=== PATIENT | female | born 1930 | race Caucasian/White ===

== ENCOUNTER 2016-11-20 15:01 | Inpatient (IN) | payer MEDICARE, OTHER ==
[~2016-11-20] VITALS: Ht 162.6 cm; Wt 87.6 kg
[~2016-11-20 15:01] MED LIST: CLEO300C2 PO; ESTR0.5T9 PO; FURO20TA PO; LEVO.05 PO; NAPR-576 PO; OXYC1SOL5 PO; POTA-243 PO; SULF-154 PO; WALKER ROLLING
[2016-11-20 15:16] VITALS: BP 154/77; PULSE 87; RESP 20; TEMP 98.1; O2SAT 99
[2016-11-20] MEDS ORDERED: MORPHINE SULFATE 4 MG/ML INJ IV PUSH ONE (16:00)
[2016-11-20] MEDS ORDERED: SODIUM CHLORIDE 0.9% FLUSH 5 ML FLUSH IVF PRN (16:00)
--- NOTE | 2016-11-20 16:12 | PD ---
HPI Chief Complaint: Fall Time Seen by Provider: 16:12 Travel History International Travel<30 days: No Contact w/Intl Traveler<30days: No Traveled to known affect area: No History of Present Illness HPI 86-year-old female brought in by EMS status post fall. Patient states she was helping a friend change Walker's, when he fell backwards causing her to fall backwards onto her left side. Patient now has complaints of left hip pain and left shoulder pain. Patient denies hitting her head or loss of consciousness. She has no neck pain. Patient was seen in the ambulance all by Dr. Wong put orders in. Patient states no significant chronic medical problems , and she takes no medications other than oxycodone for chronic back pain. Patient also takes thyroid medication but is not diabetic and has no history of cardiac issues in the past. Patient is allergic to penicillin and tetracycline. Patient does not have an IV line. PFSH Past Medical History Arthritis: Yes Cancer: Yes (SKIN CANCER ON FACE) Cardiovascular Problems: No Diabetes: No Diminished Hearing: No Endocrine: No Gastrointestinal Disorders: Yes (HEMMEROIDS, INCONTINENCE) Genitourinary: Yes (INCONTINENT ) Headaches: Yes Hepatitis: No Hiatal Hernia: No Immune Disorder: No Musculoskeletal: Yes Neurologic: Yes (MIGRAINES) Psychiatric: No Reproductive: No Respiratory: No Migraines: Yes Thyroid Disease: Yes (HYPOTHYROIDISM) Tetanus Vaccination: Unknown Influenza Vaccination: No ?: Not Menopausal: Yes Past Surgical History Abdominal Surgery: No AICD: No Appendectomy: Yes Cardiac Surgery: No Ear Surgery: No Endocrine Surgery: No Eye Surgery: Yes (CATARACT SURGERY 2004) Genitourinary Surgery: No Gynecologic Surgery: No Hysterectomy: Yes Joint Replacement: No Neurologic Surgery: Yes (LUMBAR SURGERY; LAMINECTOMY 2000) Oral Surgery: No Pacemaker: No Thoracic Surgery: No Tonsillectomy: Yes Other Surgery: Yes (FACE LIFT) Social History Alcohol Use: Yes (WINE AT NIGHT 1.5 GLASSES ) Tobacco Use: No Substance Use: No Allergies-Medications (Allergen,Severity, Reaction): Coded Allergies: Penicillin (Verified Allergy, Severe, RASH, 11/20/16) Tetracyclines (Verified Allergy, Severe, 11/20/16) Reported Meds & Prescriptions Reported Meds & Active Scripts Active Naproxen 500 Mg Tab 500 Mg PO BID Septra Ds (Trimethoprim/Sulfamethoxazole) Tab 1 Tab PO BID Cleocin (Clindamycin HCl) 300 Mg Cap 300 Mg PO QID Oxycodone/Acetaminophen 10 mg/325 mg 1 Tab Tab 1 Tab PO Q4 Walker Rolling (Device) Device 1 Ea Reported Furosemide 20 Mg Tab 20 Mg PO DAILY Klor-Con 10 Meq (Potassium Chloride) 10 Meq Tabcr 10 Meq PO DAILY Synthroid (Levothyroxine Sodium) 50 Mcg Tab 100 Mcg PO DAILY Estrace (Estradiol) 0.5 Mg Tab 2 Mg PO DAILY UNKNOWN DOSE Review of Systems Except as stated in HPI: all other systems reviewed are Neg General / Constitutional: No: Fever Eyes: No: Visual changes HENT: No: Headaches Cardiovascular: No: Chest Pain or Discomfort Respiratory: No: Shortness of Breath Gastrointestinal: No: Abdominal Pain Genitourinary: No: Dysuria Musculoskeletal: No: Pain Skin: No Rash Neurologic: No: Weakness Psychiatric: No: Depression Endocrine: No: Polydipsia Hematologic/Lymphatic: No: Easy Bruising Physical Exam Narrative GENERAL: Patient is alert and oriented and in mild to moderate distress secondary to pain. SKIN: Warm and dry. No acute open wounds. We'll color. Normal turgor. HEAD: Atraumatic. Normocephalic. Nontender. EYES: Pupils equal and round. No scleral icterus. No injection or drainage. ENT: No nasal bleeding or discharge. Mucous membranes pink and moist. No dental injuries. Airway is patent. NECK: Trachea midline. No JVD. Supple and nontender without step-off or point tenderness. CARDIOVASCULAR: Regular rate and rhythm. No murmurs appreciated. RESPIRATORY: No accessory muscle use. Clear to auscultation. Breath sounds equal bilaterally. GASTROINTESTINAL: Abdomen soft, non-tender, nondistended. Hepatic and splenic margins not palpable. MUSCULOSKELETAL: Extremities without clubbing, cyanosis, or edema. Patient has mild shortening and external rotation of the left leg. Patient complains of most pain with palpation in the anterior groin which she describes as deep into the pelvis. Pelvis itself seems stable on exam. Left shoulder is able to remove with discomfort both actively and passively. There is no obvious point tenderness or deformity. Range of motion is limited secondary to pain. Patient states she has a history of pain in the left shoulder but seems to be worse and she fell. NEUROLOGICAL: Awake and alert. No obvious cranial nerve deficits. Motor grossly within normal limits. Five out of 5 muscle strength in the arms and legs. Normal speech. PSYCHIATRIC: Appropriate mood and affect; insight and judgment normal. Data Data Last Documented VS Vital Signs Date Time Temp Pulse Resp B/P Pulse Ox O2 Delivery O2 Flow Rate FiO2 11/20/16 16:46 95 20 138/63 100 Room Air 11/20/16 15:16 98.1 Orders Electrocardiogram (11/20/16 15:58) Complete Blood Count With Diff (11/20/16 15:58) Comprehensive Metabolic Panel (11/20/16 15:58) Prothrombin Time / Inr (Pt) (11/20/16 15:58) Act Partial Throm Time (Ptt) (11/20/16 15:58) Urinalysis - C+S If Indicated (11/20/16 15:58) Type And Screen (11/20/16 15:58) Chest, Single Ap (11/20/16 15:58) Hip, Uni(Ap&Lat) W Ap Pelvis (11/20/16 15:58) Iv Access Insert/Monitor (11/20/16 15:58) Oximetry (11/20/16 15:58) Ecg Monitoring (11/20/16 15:58) Morphine Inj (Morphine Inj) (11/20/16 16:00) Sodium Chloride 0.9% Flush (Ns Flush) (11/20/16 16:00) Diet Npo (11/21/16 Dinner) Shoulder, Complete (>2vws) (11/20/16 16:24) Urinary Catheter Insert/Apply (11/20/16 16:24) Hydromorphone Pf Inj (Dilaudid Pf Inj) (11/20/16 17:15) Hydromorphone Pf Inj (Dilaudid Pf Inj) (11/20/16 17:15) Ct Hip W/O Contrast (11/20/16 ) Admit Order (Ed Use Only) (11/20/16 19:19) Consult Orthopedic (11/20/16 ) Labs Laboratory Tests Test 11/20/16 16:40 White Blood Count 10.7 TH/MM3 Red Blood Count 3.58 MIL/MM3 Hemoglobin 10.7 GM/DL Hematocrit 33.5 % Mean Corpuscular Volume 93.6 FL Mean Corpuscular Hemoglobin 30.0 PG Mean Corpuscular Hemoglobin 32.1 % Concent Red Cell Distribution Width 15.0 % Platelet Count 237 TH/MM3 Mean Platelet Volume 9.0 FL Neutrophils (%) (Auto) 74.4 % Lymphocytes (%) (Auto) 17.3 % Monocytes (%) (Auto) 5.9 % Eosinophils (%) (Auto) 1.6 % Basophils (%) (Auto) 0.8 % Neutrophils # (Auto) 7.9 TH/MM3 Lymphocytes # (Auto) 1.9 TH/MM3 Monocytes # (Auto) 0.6 TH/MM3 Eosinophils # (Auto) 0.2 TH/MM3 Basophils # (Auto) 0.1 TH/MM3 CBC Comment DIFF FINAL Differential Comment Prothrombin Time 11.0 SEC Prothromb Time International 1.0 RATIO Ratio Activated Partial 27.1 SEC Thromboplast Time Sodium Level 138 MEQ/L Potassium Level 4.0 MEQ/L Chloride Level 103 MEQ/L Carbon Dioxide Level 27.9 MEQ/L Anion Gap 7 MEQ/L Blood Urea Nitrogen 17 MG/DL Creatinine 1.06 MG/DL Estimat Glomerular Filtration 49 ML/MIN Rate Random Glucose 92 MG/DL Calcium Level 8.9 MG/DL Total Bilirubin 0.3 MG/DL Aspartate Amino Transf 16 U/L (AST/SGOT) Alanine Aminotransferase 14 U/L (ALT/SGPT) Alkaline Phosphatase 98 U/L Total Protein 7.8 GM/DL Albumin 3.1 GM/DL Blood Type O POSITIVE Antibody Screen NEGATIVE MDM Medical Decision Making Medical Screen Exam Complete: Yes Emergency Medical Condition: Yes Differential Diagnosis Fall. Left hip fracture. Left hip pain. Left shoulder pain. Left shoulder fracture. Narrative Course Patient is medically stable at time of exam. Labs ordered including CBC, CMP, PT PTT and INR, urinalysis. Chest x-ray is ordered as well as x-rays of the left femur and hip and left shoulder. IV access is obtained patient is ordered morphine 4 mg IV. Ackerman catheter is ordered. Patient is kept nothing by mouth. Patient is given Dilaudid 1 mg IV prior to her x-rays. Upon return from her x-rays patient continues to have pain, an additional 1 mg of Dilaudid is given IV. X-ray left shoulder is unremarkable for acute process. X-rays of the left hip are felt to be positive for a femoral neck fracture myself and Dr. Chavez, but Dr. Jacobson the radiologist is unsure. CT of the right hip is ordered. Call was placed to Dr. Riley, and I spoke with his physician financial legal assistant, who is going to review the x-rays and call me back. 1910 hrs. call returned by Dr. Riley physician financial legal assistant who reviewed the films with Dr. Riley, who agrees there is a femoral neck fracture. Patient will be admitted by the hospitalist and is planning to have hip replacement with Dr. Larry tomorrow morning. 1913 hrs. call placed to the hospitalist for admission. 1917 hrs. discussed patient with Dr. Hernandez who agrees to admit the patient. Patient is to be nothing by mouth after midnight. Diagnosis Primary Impression: Closed left hip fracture Qualified Code: S72.002A - Closed left hip fracture, initial encounter Admitting Information Admitting Physician Requests: Admit Condition: Stable Lucho Casillas Nov 20, 2016 16:12
[2016-11-20 16:46] VITALS: BP 138/63; PULSE 95; RESP 20; O2SAT 100
[2016-11-20] MEDS ORDERED: HYDROmorphone HCL PF 1 MG/ML VIAL IV PUSH ONE ×3 (17:15→20:00)
[2016-11-20 17:52] LABS: AUTOMATED NEUTROPHIL # 7.9 TH/MM3 (1.8-7.7); BASOPHIL # 0.1 TH/MM3 (0-0.2); BASOPHIL % 0.8 % (0.0-2.0); EOSINOPHIL # 0.2 TH/MM3 (0-0.4); EOSINOPHIL % 1.6 % (0.0-4.0); HEMATOCRIT 33.5 % (35.0-46.0); HEMO FLAGS DIFF FINAL; LYMPH % 17.3 % (9.0-44.0); LYMPHOCYTE # 1.9 TH/MM3 (1.0-4.8); MEAN CELL VOLUME 93.6 FL (80.0-100.0); MEAN CORPUSCULAR HGB CONC 32.1 % (32.0-36.0); MONO % 5.9 % (0.0-8.0); NEUT % 74.4 % (16.0-70.0); PLATELET COUNT 237 TH/MM3 (150-450); RED BLOOD COUNT 3.58 MIL/MM3 (4.00-5.30); WHITE BLOOD COUNT 10.7 TH/MM3 (4.0-11.0)
[2016-11-20 18:02] LABS: APTT (PATIENT) 27.1 SEC (24.3-30.1)
[2016-11-20 18:25] LABS: ANION GAP 7 MEQ/L (5-15); AST (GOT) 16 U/L (15-37); BICARBONATE 27.9 MEQ/L (21.0-32.0); BLOOD UREA NITROGEN 17 MG/DL (7-18); CHLORIDE 103 MEQ/L (98-107); GLOMERULAR FILTRATION RATE 49 ML/MIN (>89); SODIUM (NA) 138 MEQ/L (136-145)
[2016-11-20 18:28] LABS: ALKALINE PHOSPHATASE 98 U/L (45-117); ALT (GPT) 14 U/L (10-53); TOTAL BILIRUBIN ADULT 0.3 MG/DL (0.2-1.0)
--- NOTE | 2016-11-20 18:28 | RADRPT ---
EXAM DATE/TIME: 11/20/2016 17:15 [facility] COMPARISON: CHEST SINGLE AP, November 19, 2014, 16:02. INDICATIONS : Chest pain. Post fall. MEDICAL HISTORY : None. SURGICAL HISTORY : None. ENCOUNTER: Initial ACUITY: 1 day PAIN SCORE: 1/10 LOCATION: Bilateral chest FINDINGS: There is no evidence for rib fracture. There is no pneumothorax. The heart and pulmonary vascularity are normal. CONCLUSION: Underaerated without rib fracture. Raffi Jacobson MD FACR on November 20, 2016 at 18:12 Board Certified Radiologist. This report was verified electronically.
--- NOTE | 2016-11-20 18:30 | RADRPT ---
EXAM DATE/TIME: 11/20/2016 17:15 [facility] COMPARISON: No previous studies available for comparison. INDICATIONS : Left shoulder pain post fall. MEDICAL HISTORY : None. SURGICAL HISTORY : None. ENCOUNTER: Initial ACUITY: 1 day PAIN SCORE: 8/10 LOCATION: Left shoulder. FINDINGS: There are degenerative changes about the left shoulder. A fracture is not appreciated. Alignment is anatomic. There is minimal calcification in the biceps tendon. CONCLUSION: Negative for fracture. Raffi Jacobson MD FACR on November 20, 2016 at 18:13 Board Certified Radiologist. This report was verified electronically.
--- NOTE | 2016-11-20 18:31 | RADRPT ---
EXAM DATE/TIME: 11/20/2016 17:15 [facility] COMPARISON: No previous studies available for comparison. INDICATIONS : Left hip pain post fall. MEDICAL HISTORY : None. SURGICAL HISTORY : None. ENCOUNTER: Initial ACUITY: 1 day PAIN SCORE: 9/10 LOCATION: Left hip. FINDINGS: Examination is severely limited by the patient's large body habitus. I do not see an obvious fractur e. If one is suspected CT scan would be of benefit. CONCLUSION: Severely limited exam by patient's body habitus. Please see above discussion. Raffi Jacobson MD FACR on November 20, 2016 at 18:22 Board Certified Radiologist. This report was verified electronically.
--- NOTE | 2016-11-20 18:43 | PD ---
Data Data Last Documented VS Vital Signs Date Time Temp Pulse Resp B/P Pulse Ox O2 Delivery O2 Flow Rate FiO2 11/20/16 16:46 95 20 138/63 100 Room Air 11/20/16 15:16 98.1 Orders Electrocardiogram (11/20/16 15:58) Complete Blood Count With Diff (11/20/16 15:58) Comprehensive Metabolic Panel (11/20/16 15:58) Prothrombin Time / Inr (Pt) (11/20/16 15:58) Act Partial Throm Time (Ptt) (11/20/16 15:58) Urinalysis - C+S If Indicated (11/20/16 15:58) Type And Screen (11/20/16 15:58) Chest, Single Ap (11/20/16 15:58) Hip, Uni(Ap&Lat) W Ap Pelvis (11/20/16 15:58) Iv Access Insert/Monitor (11/20/16 15:58) Oximetry (11/20/16 15:58) Ecg Monitoring (11/20/16 15:58) Morphine Inj (Morphine Inj) (11/20/16 16:00) Sodium Chloride 0.9% Flush (Ns Flush) (11/20/16 16:00) Diet Npo (11/21/16 Dinner) Shoulder, Complete (>2vws) (11/20/16 16:24) Urinary Catheter Insert/Apply (11/20/16 16:24) Hydromorphone Pf Inj (Dilaudid Pf Inj) (11/20/16 17:15) Hydromorphone Pf Inj (Dilaudid Pf Inj) (11/20/16 17:15) Ct Hip W/O Contrast (11/20/16 ) Labs Laboratory Tests Test 11/20/16 16:40 White Blood Count 10.7 TH/MM3 Red Blood Count 3.58 MIL/MM3 Hemoglobin 10.7 GM/DL Hematocrit 33.5 % Mean Corpuscular Volume 93.6 FL Mean Corpuscular Hemoglobin 30.0 PG Mean Corpuscular Hemoglobin 32.1 % Concent Red Cell Distribution Width 15.0 % Platelet Count 237 TH/MM3 Mean Platelet Volume 9.0 FL Neutrophils (%) (Auto) 74.4 % Lymphocytes (%) (Auto) 17.3 % Monocytes (%) (Auto) 5.9 % Eosinophils (%) (Auto) 1.6 % Basophils (%) (Auto) 0.8 % Neutrophils # (Auto) 7.9 TH/MM3 Lymphocytes # (Auto) 1.9 TH/MM3 Monocytes # (Auto) 0.6 TH/MM3 Eosinophils # (Auto) 0.2 TH/MM3 Basophils # (Auto) 0.1 TH/MM3 CBC Comment DIFF FINAL Differential Comment Prothrombin Time 11.0 SEC Prothromb Time International 1.0 RATIO Ratio Activated Partial 27.1 SEC Thromboplast Time Sodium Level 138 MEQ/L Potassium Level 4.0 MEQ/L Chloride Level 103 MEQ/L Carbon Dioxide Level 27.9 MEQ/L Anion Gap 7 MEQ/L Blood Urea Nitrogen 17 MG/DL Creatinine 1.06 MG/DL Estimat Glomerular Filtration 49 ML/MIN Rate Random Glucose 92 MG/DL Calcium Level 8.9 MG/DL Total Bilirubin 0.3 MG/DL Aspartate Amino Transf 16 U/L (AST/SGOT) Alanine Aminotransferase 14 U/L (ALT/SGPT) Alkaline Phosphatase 98 U/L Total Protein 7.8 GM/DL Albumin 3.1 GM/DL Blood Type O POSITIVE Antibody Screen NEGATIVE MDM Supervised Visit with WALLY: Yes Narrative Course The history, exam, and medical decision-making in the associated midlevel provider note were completed with my assistance. I reviewed and agree with the findings presented. I attest that I had a [id number] encounter with the patient on the same day, and personally performed and documented my assessment and findings in the medical record. *My assessment and Findings: This is an 86-year-old female who presents to the emergency department having had a fall. Patient has evidence clinically and on my read on x-ray of a left femoral neck fracture. Radiology would like to obtain a CT to evaluate the hip more thoroughly. Patient will be admitted for orthopedic evaluation. Condition: Stable Salome Chavez MD Nov 20, 2016 18:43
[2016-11-20 19:35] LABS: BACTERIA, URINE MOD /hpf; BLOOD, URINE NEG (NEG); COMMENT (UR) CATH-CULTURE IND; CULTURE IF INDICATED CATH CULTURE IND; GLUCOSE,URINE NEG (NEG); KETONE, URINE NEG (NEG); MUCUS URINE FEW /lpf (OCC); NITRITE,URINE POS (NEG); PH, URINE 5.5 (5.0-8.5); SQUAMOUS EPITHELIAL CELL URINE <1 /hpf (0-5); URINE COLOR YELLOW (YELLW/STRAW)
[2016-11-20] MEDS ORDERED: NALOXONE HCL 0.4 MG/ML AMP IV PRN (20:15)
[2016-11-20] MEDS ORDERED: ONDANSETRON HCL 4 MG/2 ML VIAL IVP PRN (20:15)
[2016-11-20] MEDS ORDERED: SODIUM CHLORIDE 0.9% FLUSH 5 ML FLUSH FLUSH PRN (20:15)
[2016-11-20] MEDS ORDERED: HYDROmorphone HCL PF 1 MG/ML VIAL IV PUSH PRN (20:15)
[2016-11-20 20:38] VITALS: BP 136/62; PULSE 95; RESP 20; O2SAT 97
[2016-11-20] MEDS: SODIUM CHLORIDE 0.9% FLUSH 5 ML FLUSH FLUSH SCH (21:11)
[2016-11-20 22:19] VITALS: BP 132/58; PULSE 88; RESP 20
--- NOTE | 2016-11-20 23:37 | HHI.HP ---
[facility] Melvin Izquierdo DO Admission Diagnosis Left Hip Fracture Diagnoses: Chief Complaint: Left hip pain Travel History International Travel<30 Days: No Contact w/Intl Traveler <30 Da: No Traveled to Known Affected Are: No History of Present Illness History taken from patient and ED physician 86-year-old female with a history of chronic back pain, hypothyroidism, skin cancer, rheumatoid arthritis and lymphedema presented by evac after suffering a fall at home. Patient states that her walker has a seat on it and her fianc was getting weak and thought he was going to follow, so she turned her walker around so he could sit on his feet, and the force of him sitting on the seat pushed her backwards and she fell to the ground and landed on her left side. She denies any loss of consciousness. She states her left hip and left shoulder is a severe throbbing pain, with no associated symptoms. She denies any chest pain, short of breath, fever or chills. Review of Systems Constitutional: DENIES: Fever, Chills Respiratory: DENIES: Cough, Sputum production, Shortness of breath Cardiovascular: COMPLAINS OF: Lower Extremity Edema (chronic), DENIES: Chest pain, Dyspnea on Exertion Gastrointestinal: DENIES: Constipation, Diarrhea, Nausea, Vomiting Genitourinary: DENIES: Dysuria Musculoskeletal: COMPLAINS OF: Back pain (chronic), DENIES: Neck pain Integumentary: DENIES: Rash Immunologic/allergic: DENIES: Urticaria Neurologic: DENIES: Headache Past Family Social History Past Medical History Chronic back pain Hypothyroidism Skin cancer Short arthritis Lymphedema Past Surgical History Laminectomy in 1999 and 2003 Cataracts 2005 Facelift Tonsillectomy hysterectomy Appendectomy Reported Medications Reported Meds & Active Scripts Active Naproxen 500 Mg Tab 500 Mg PO BID Septra Ds (Trimethoprim/Sulfamethoxazole) Tab 1 Tab PO BID Cleocin (Clindamycin HCl) 300 Mg Cap 300 Mg PO QID Oxycodone/Acetaminophen 10 mg/325 mg 1 Tab Tab 1 Tab PO Q4 Walker Rolling (Device) Device 1 Ea Reported Furosemide 20 Mg Tab 20 Mg PO DAILY Jordan 10 Meq (Potassium Chloride) 10 Meq Tabcr 10 Meq PO DAILY Synthroid (Levothyroxine Sodium) 50 Mcg Tab 100 Mcg PO DAILY Estrace (Estradiol) 0.5 Mg Tab 2 Mg PO DAILY UNKNOWN DOSE Allergies: Coded Allergies: Penicillin (Verified Allergy, Severe, RASH, 11/20/16) Tetracyclines (Verified Allergy, Severe, 11/20/16) Active Ordered Medications Current Medications Medications (Trade) Dose Ordered Sig/Yari Route Start Time Stop Time Status Last Admin (NS Flush) 2 ml UNSCH PRN FLUSH 11/20/16 20:15 (NS Flush) 2 ml BID FLUSH 11/20/16 21:00 11/20/16 21:11 (Zofran Inj) 4 mg Q6H PRN IVP 11/20/16 20:15 (Narcan Inj) 0.4 mg UNSCH PRN IV 11/20/16 20:15 (Dilaudid Pf Inj) 1 mg Q2HR PRN IV PUSH 11/21/16 00:30 Family History Mom: Heart disease Social History Tobacco use: Denies Alcohol use: A glass of Wine night Illicit drug use: Denies Physical Exam Vital Signs Vital Signs Date Time Temp Pulse Resp B/P Pulse Ox O2 Delivery O2 Flow Rate FiO2 11/20/16 22:19 88 20 132/58 Nasal Cannula 11/20/16 20:38 95 20 136/62 97 Nasal Cannula 11/20/16 16:46 95 20 138/63 100 Room Air 11/20/16 15:18 Room Air 11/20/16 15:16 98.1 87 20 154/77 99 Physical Exam GENERAL: This is a well-nourished, well-developed patient, in a moderate amount of pain SKIN: Bilateral lower extremities lymphedema, currently wrapped in an ulnar boot. HEAD: Atraumatic. Normocephalic. EYES: Pupils equal round and reactive. ENT: Nose without bleeding, purulent drainage or septal hematoma. Airway patent. NECK: Trachea midline. No JVD. CARDIOVASCULAR: Regular rate and rhythm without murmurs, gallops, or rubs. RESPIRATORY: Clear to auscultation. Breath sounds equal bilaterally. No wheezes , rales, or rhonchi. GASTROINTESTINAL: Abdomen soft, non-tender, nondistended. MUSCULOSKELETAL: Bilateral lower extremity lymph edema. Left hip tenderness No calf tenderness. NEUROLOGICAL: Awake and alert. Motor and sensory grossly within normal limits. Normal speech. Laboratory Laboratory Tests Test 11/20/16 16:40 White Blood Count 10.7 Red Blood Count 3.58 Hemoglobin 10.7 Hematocrit 33.5 Mean Corpuscular Volume 93.6 Mean Corpuscular Hemoglobin 30.0 Mean Corpuscular Hemoglobin 32.1 Concent Red Cell Distribution Width 15.0 Platelet Count 237 Mean Platelet Volume 9.0 Neutrophils (%) (Auto) 74.4 Lymphocytes (%) (Auto) 17.3 Monocytes (%) (Auto) 5.9 Eosinophils (%) (Auto) 1.6 Basophils (%) (Auto) 0.8 Neutrophils # (Auto) 7.9 Lymphocytes # (Auto) 1.9 Monocytes # (Auto) 0.6 Eosinophils # (Auto) 0.2 Basophils # (Auto) 0.1 CBC Comment DIFF FINAL Differential Comment Prothrombin Time 11.0 Prothromb Time International 1.0 Ratio Activated Partial 27.1 Thromboplast Time Urine Color YELLOW Urine Turbidity CLEAR Urine pH 5.5 Urine Specific Hudson 1.016 Urine Protein NEG Urine Glucose (UA) NEG Urine Ketones NEG Urine Occult Blood NEG Urine Nitrite POS Urine Bilirubin NEG Urine Urobilinogen LESS THAN 2.0 Urine Leukocyte Esterase SMALL Urine RBC LESS THAN 1 Urine WBC 5 Urine Squamous Epithelial <1 Cells Urine Bacteria MOD Urine Mucus FEW Microscopic Urinalysis Comment CATH-CULTURE IND Sodium Level 138 Potassium Level 4.0 Chloride Level 103 Carbon Dioxide Level 27.9 Anion Gap 7 Blood Urea Nitrogen 17 Creatinine 1.06 Estimat Glomerular Filtration 49 Rate Random Glucose 92 Calcium Level 8.9 Total Bilirubin 0.3 Aspartate Amino Transf 16 (AST/SGOT) Alanine Aminotransferase 14 (ALT/SGPT) Alkaline Phosphatase 98 Total Protein 7.8 Albumin 3.1 Blood Type O POSITIVE Antibody Screen NEGATIVE Date/Time Procedure Status Source Growth 11/20/16 16:40 Urine Culture Received Urine Catheterized Urine Pending Result Diagram: 11/20/16 1640 11/20/16 1640 Imaging Last Impressions Shoulder X-Ray 11/20/16 1624 Signed Impressions: Service Date/Time: Sunday, November 20, 2016 17:15 - CONCLUSION: Negative for fracture. Raffi Jacobson MD FACR Hip and Pelvis X-Ray 11/20/16 1558 Signed Impressions: Service Date/Time: Sunday, November 20, 2016 17:15 - CONCLUSION: Severely limited exam by patient's body habitus. Please see above discussion. Raffi Jacobson MD FACR Chest X-Ray 11/20/16 1138 Signed Impressions: Service Date/Time: Sunday, November 20, 2016 17:15 - CONCLUSION: Underaerated without rib fracture. Raffi Jacobson MD FACR Assessment and Plan Problem List: (1) Closed left hip fracture ICD Code: S72.002A Status: Acute (2) Lymph edema ICD Code: I89.0 Status: Chronic (3) Hypothyroidism ICD Code: E03.9 Status: Chronic Assessment and Plan 86 y/o female with a history of hypothyroidism, chronic back pain and lymphedema presented with: Closed hip fracture Images reviewed: Hip x-ray questionable for fracture -consult orthopedic for recommendations -Pain management with IV Dilaudid Lymphedema, chronic -Consult wound care: patient currently has ulna boots -Cont dressing changes per wound care recommendations Hypothyroidism, chronic -We will restart home medications levothyroxine when med rec is complete DVT prophylaxis: Teds, chemical anticoagulation per surgery Written by Laxmi PORTER, acting as scribe for Dr. Leal on 11/20/16 at 2345. The documentation accurately reflects the work performed [id number] and decisions made by me and the physician Dr Leal on 11/20/16. The documentation accurately reflects the work performed [id number] by me on at 2345 Discussed Condition With Patient and ED physician Physician Certification 2 Midnight Certification Type: Admission for Inpatient Services Order for Inpatient Services The services are ordered in accordance with Medicare regulations or non- Medicare payer requirements, as applicable. In the case of services not specified as inpatient-only, they are appropriately provided as inpatient services in accordance with the 2-midnight benchmark. Estimated LOS (days): 3 days is the estimated time the patient will need to remain in the hospital, assuming treatment plan goals are met and no additional complications. Post-Hospital Plan: Not yet determined Problem Qualifiers (1) Closed left hip fracture: Qualified Code: S72.002A - Closed left hip fracture, initial encounter Laxmi Donahue Nov 20, 2016 23:36 Mirela Leal MD Nov 21, 2016 08:38
[2016-11-21] VITALS (11 sets, daily range): BP systolic 112–170; BP diastolic 56–79; PULSE 75–92; RESP 14–24; TEMP 98.1–98.5; O2SAT 93–97
[2016-11-21] MEDS ORDERED: HYDROmorphone HCL PF 1 MG/ML VIAL IV PUSH PRN (00:30)
[2016-11-21] MEDS ORDERED: LORazepam 2 MG/ML VIAL IV PUSH ONE (03:15)
--- NOTE | 2016-11-21 04:08 | RADRPT ---
EXAM DATE/TIME: 11/21/2016 03:33 [facility] COMPARISON: HIP LEFT (AP&LAT 2/3VWS) W AP PELVIS, November 20, 2016, 17:15. INDICATIONS : Fall, left groin pain. Evaluate for left hip fracture. RADIATION DOSE: 23.34 CTDIvol (mGy) MEDICAL HISTORY : None SURGICAL HISTORY : None ENCOUNTER: Initial ACUITY: 1 day PAIN SCALE: 10/10 LOCATION: Left Hip TECHNIQUE: Volumetric scanning of the hip was performed. Using automated exposure control and adjustment of the mA and/or kV according to patient size, radiation dose was kept as low as reasonably achievable to o btain optimal diagnostic quality images. FINDINGS: Examination really mildly angulated and impacted basicervical left femoral neck fracture. There is ap ex anterior angulation at the fracture site. The femoral head is intact and remains situated of the a cetabulum. Severe underlying degenerative arthritic changes noted. The adjacent bony pelvis is intact . Severe degenerative change is present the contralateral right hip and in the visualized lower lumba r spine. CONCLUSION: Mildly angulated and impacted basicervical left femoral neck fracture. Juan Pablo Ramirez MD on November 21, 2016 at 4:03 Board Certified Radiologist. This report was verified electronically.
[2016-11-21 05:32] LABS: AUTOMATED NEUTROPHIL # 5.2 TH/MM3 (1.8-7.7); BASOPHIL # 0.1 TH/MM3 (0-0.2); BASOPHIL % 0.8 % (0.0-2.0); EOSINOPHIL # 0.3 TH/MM3 (0-0.4); EOSINOPHIL % 4.6 % (0.0-4.0); HEMATOCRIT 29.2 % (35.0-46.0); HEMO FLAGS DIFF FINAL; LYMPH % 17.5 % (9.0-44.0); LYMPHOCYTE # 1.3 TH/MM3 (1.0-4.8); MEAN CELL VOLUME 93.5 FL (80.0-100.0); MEAN CORPUSCULAR HEMOGLOBIN 30.2 PG (27.0-34.0); MEAN CORPUSCULAR HGB CONC 32.3 % (32.0-36.0); NEUT % 70.1 % (16.0-70.0); PLATELET COUNT 211 TH/MM3 (150-450); RED BLOOD COUNT 3.13 MIL/MM3 (4.00-5.30); RED CELL DISTRIBUTION WIDTH 14.9 % (11.6-17.2); WHITE BLOOD COUNT 7.4 TH/MM3 (4.0-11.0)
[2016-11-21 05:48] LABS: BICARBONATE 27.8 MEQ/L (21.0-32.0); POTASSIUM 3.8 MEQ/L (3.5-5.1)
--- NOTE | 2016-11-21 07:25 | PD.ORT.PN ---
Subjective Subjective Remarks s/p fall at home. left hip pain Objective Vitals Vital Signs Date Time Temp Pulse Resp B/P Pulse Ox O2 Delivery O2 Flow Rate FiO2 11/21/16 06:21 79 20 119/56 96 Nasal Cannula 11/21/16 05:10 85 20 114/56 95 Nasal Cannula 11/21/16 03:49 92 20 155/68 95 Nasal Cannula 11/21/16 01:30 92 20 130/60 95 Nasal Cannula 11/21/16 00:05 82 24 112/56 97 Nasal Cannula 11/20/16 22:19 88 20 132/58 Nasal Cannula 11/20/16 21:00 20 11/20/16 20:38 95 20 136/62 97 Nasal Cannula 11/20/16 16:46 95 20 138/63 100 Room Air 11/20/16 15:18 Room Air 11/20/16 15:16 98.1 87 20 154/77 99 I/O 11/20/16 11/20/16 11/20/16 11/21/16 11/21/16 11/21/16 07:00 15:00 23:00 07:00 15:00 23:00 Output Total 1000 ml Balance -1000 ml Output Urine Total 1000 ml # Voids 0 Result Diagram: 11/21/16 0425 11/21/16 0425 Other Results Laboratory Tests Test 11/20/16 16:40 Prothrombin Time 11.0 SEC (9.8-11.6) Prothromb Time International 1.0 RATIO Ratio Imaging Last 24 hours Impressions Shoulder X-Ray 11/20/16 1624 Signed Impressions: Service Date/Time: Sunday, November 20, 2016 17:15 - CONCLUSION: Negative for fracture. Raffi Jacobson MD FACR Hip and Pelvis X-Ray 11/20/16 1558 Signed Impressions: Service Date/Time: Sunday, November 20, 2016 17:15 - CONCLUSION: Severely limited exam by patient's body habitus. Please see above discussion. Raffi Jacobson MD FACR Chest X-Ray 11/20/16 1558 Signed Impressions: Service Date/Time: Sunday, November 20, 2016 17:15 - CONCLUSION: Underaerated without rib fracture. Raffi Jacobson MD FACR Objective Remarks LLE: pain in hip with motion. NVI Assessment & Plan Assessment and Plan 1) Left Femoral Neck Fx -npo -consetns -surgery Huan Beltrán Nov 21, 2016 07:25
[2016-11-21] MEDS ORDERED: KETAMINE HCL 500 MG/5 ML VIAL ONE (07:42)
[2016-11-21] MEDS ORDERED: VANCOMYCIN HCL 1000 MG VIAL OTHER ONE (07:58)
[2016-11-21] MEDS ORDERED: ceFAZolin INJ 1,000 MG VIAL IV ONE (08:08)
[2016-11-21] MEDS ORDERED: BUPIVACAINE/EPINEPHRINE 0.25% PF 30 ML VIAL INFIL ONE (08:11)
[2016-11-21] MEDS ORDERED: ACETAMINOPHEN 1000 MG/100 ML VIAL IV ONE (08:42)
[2016-11-21] MEDS ORDERED: XARE10TA PO (08:55)
[2016-11-21] MEDS ORDERED: WALKER/ADULT/FO1 MIS (08:56)
[2016-11-21] MEDS ORDERED: PERC5TAB12 PO (08:58)
[2016-11-21] MEDS: SODIUM CHLORIDE 0.9% FLUSH 5 ML FLUSH FLUSH SCH (09:00)
[2016-11-21] MEDS ORDERED: oxyCODONE/ACETAMINOPHEN 5 MG/325 MG TAB PO PRN (09:00)
[2016-11-21] MEDS ORDERED: SODIUM CHLORIDE 0.9% FLUSH 5 ML FLUSH IVF PRN (09:00)
[2016-11-21] MEDS: SODIUM CHLORIDE 0.9% FLUSH 5 ML FLUSH IVF SCH ×2 (09:00→19:38)
[2016-11-21] MEDS ORDERED: ACETAMINOPHEN/HYDROcodone 325 MG/5 MG TAB PO PRN ×2 (09:00)
[2016-11-21] MEDS ORDERED: ERGOCALCIFEROL (VIT D2) 50,000 UNIT CAP PO ONE (09:00)
[2016-11-21] MEDS ORDERED: MORPHINE SULFATE 4 MG/ML INJ IV PUSH PRN ×3 (09:00→20:00)
[2016-11-21] MEDS ORDERED: Post-op Orders (for Pharmacy) MISC XX ONE (09:00)
--- NOTE | 2016-11-21 09:01 | PD.OP ---
cc: Davis Larry MD Operative Report Date of Surgery: Nov 21, 2016 Preoperative Diagnosis: Left impacted femoral neck fracture Postoperative Diagnosis: Procedure: Left hip pinning Anesthesia: Gen. Surgeon: Davis Larry Junior Business Analyst(s): FRANCHESKA Leong PA-C The surgical procedure was assisted by my physician senior court office assistant. My P.A. presence was necessary throughout this case for the manipulation and positioning of the surgical extremity. My P.A. was assisting me throughout the duration of this procedure. The skill set of a physician senior court office assistant was medically necessary to complete this procedure. During the surgical case the operating room surgical technologist was working at the back table and the physician senior court office assistant was directly assisting me. Operation and Findings: Plan of activity: TTWB Patient was seen and evaluated preoperatively. The patient has significant hip pain from impacted femoral neck fracture. The risk and benefits of surgery were discussed in depth with the patient to include bleeding infection nonunion malunion, avascular necrosis and need for hip replacement painful hardware as well as medical competitions including but not stroke heart attack and . Informed consent was obtained. Operative site was marked. Patient was brought to the operating room and placed on fracture table. IV sedation was administered by anesthesiologist. Timeout procedure was performed. Hip and leg were prepped with alcohol followed by Hibiclens and draped in the usual sterile fashion. IV antibiotics were given prior to incision. Procedure began with evaluation of fracture under fluoroscopy. Leg was gently manipulated to improve alignment. Excellent reduction was achieved. Fluoroscopy was used to confirm reduction. A three cm incision was along the lateral aspect of the proximal femur . Subcutaneous tissue was dissected bluntly. Three guidepins were placed through the lateral cortex of the proximal femur. Guide pins were placed in an inverted triangle position. Guide pins were advanced across the fracture site into the femoral head. Fluoroscopy confirmed appropriate guidepin placement. The screw lengths were measured. A cannulated drill was placed over each of the guide pins. Appropriate length Synthes 7.3 cannulated screws were placed over the guidepins. Good compression was applied across the fracture. Final fluoroscopy revealed well aligned fracture with well-placed hardware. Incision was closed with 3-0 Vicryl and elizabeth. Sterile dressings were applied. Patient was awakened and transferred to recovery room. Davis Larry MD Nov 21, 2016 09:01
[2016-11-21] MEDS ORDERED: fentaNYL CITRATE 250 MCG/5 ML AMP ONE (09:05)
[2016-11-21] MEDS ORDERED: *morphine SULFATE 8 MG/ML PERIprocedure ONLY ONE (09:19)
[2016-11-21] MEDS ORDERED: *ONDANSETRON 4 MG VIAL PERIprocedural Use ONLY ONE (09:19)
[2016-11-21] MEDS ORDERED: *RESP: ALBUTEROL 2.5 MG/3 ML NEB (PRN) PERIprocedural Use ONLY NEB ONE (09:43)
[2016-11-21] MEDS ORDERED: PROPOFOL 200 MG/20 ML AMP IV ONE (10:25)
[2016-11-21] MEDS ORDERED: ONDANSETRON HCL 4 MG/2 ML VIAL IV PUSH ONE (10:25)
[2016-11-21] MEDS ORDERED: PHENYLEPH/NS 1000 MCG/10 ML SYR IV ONE (10:25)
[2016-11-21] MEDS ORDERED: LACTATED RINGER'S 1000 ML INJ 1,000 ML IV ONE (10:25)
[2016-11-21] MEDS: CHOLECALCIFEROL (VIT D3) 5000 UNIT CAP PO SCH (12:02)
--- NOTE | 2016-11-21 13:51 | RADRPT ---
EXAM DATE/TIME: 11/21/2016 08:28 [place] COMPARISON: CT HIP LEFT W/O CONTRAST, November 21, 2016, 3:33. INDICATIONS: Left hip percutaneous pinning. OR. MEDICAL HISTORY: None. SURGICAL HISTORY: None. ENCOUNTER: Initial ACUITY: 1 day PAIN SCORE: Non-responsive. LOCATION: Left hip FINDINGS: There Painter pins are seen bridging the femoral neck fracture. Alignment is anatomic. CONCLUSION: Anatomic alignment. Raffi Jacobson MD FACR on November 21, 2016 at 13:41 Board Certified Radiologist. This report was verified electronically.
--- NOTE | 2016-11-21 15:27 | HHI.PR ---
Subjective Remarks states on chronic pain meds with high tolerance she is on Percocet 10 q 4 prn as OP appears comfortable Objective Vitals Vital Signs Date Time Temp Pulse Resp B/P Pulse Ox O2 Delivery O2 Flow Rate FiO2 11/21/16 13:40 Nasal Cannula 2.00 11/21/16 13:40 98.5 81 17 141/68 94 11/21/16 12:00 98.3 82 14 170/79 97 11/21/16 11:00 98.1 75 14 160/69 97 11/21/16 10:30 98.3 82 16 166/78 95 Nasal Cannula 3 11/21/16 10:00 79 14 167/76 95 Nasal Cannula 3 11/21/16 09:45 75 15 164/77 95 Nasal Cannula 3 11/21/16 09:30 89 16 164/79 95 Nasal Cannula 3 11/21/16 09:15 81 14 172/78 95 Nasal Cannula 3 11/21/16 09:00 97 16 163/76 96 Nasal Cannula 3 11/21/16 08:57 98.5 120 15 177/75 98 Simple Mask 6 11/21/16 06:21 79 20 119/56 96 Nasal Cannula 11/21/16 05:10 85 20 114/56 95 Nasal Cannula 11/21/16 03:49 92 20 155/68 95 Nasal Cannula 11/21/16 01:30 92 20 130/60 95 Nasal Cannula 11/21/16 00:05 82 24 112/56 97 Nasal Cannula 11/20/16 22:19 88 20 132/58 Nasal Cannula 11/20/16 21:00 20 11/20/16 20:38 95 20 136/62 97 Nasal Cannula 11/20/16 16:46 95 20 138/63 100 Room Air I/O 11/20/16 11/20/16 11/20/16 11/21/16 11/21/16 11/21/16 07:00 15:00 23:00 07:00 15:00 23:00 Intake Total 500 ml Output Total 1000 ml 270 ml Balance -1000 ml 230 ml Intake Other 500 ml Output Urine Total 1000 ml Estimated Blood Loss 20 ml Other 250 ml # Voids 0 Result Diagram: 11/21/1642411/21/16424 Imaging Last Impressions Shoulder X-Ray 11/20/161623 Signed Impressions: Service Date/Time: Sunday, November 20, 2016 17:15 - CONCLUSION: Negative for fracture. Raffi Jacobson MD FACR Hip and Pelvis X-Ray 11/20/16 1558 Signed Impressions: Service Date/Time: Sunday, November 20, 2016 17:15 - CONCLUSION: Severely limited exam by patient's body habitus. Please see above discussion. Raffi Jacobson MD FACR Chest X-Ray 11/20/16 1558 Signed Impressions: Service Date/Time: Sunday, November 20, 2016 17:15 - CONCLUSION: Underaerated without rib fracture. Raffi Jacobson MD FACR Lower Extremity CT 11/20/16 0000 Signed Impressions: Service Date/Time: Monday, November 21, 2016 03:33 - CONCLUSION: Mildly angulated and impacted basicervical left femoral neck fracture. Juan Pablo Ramirez MD Objective Remarks awake and alert when discussed about her pain meds chin area- with dry scab wound appears comfortable ancitericlungs no rales regular rhythm abdomen soft, nontender extremities - post op dressing in place Procedures 11/21-left hip surgery Urinary Catheter: Yes Ackerman insert reason: Surgical/Invasive Proced Date of Insertion: Nov 20, 2016 A/P Problem List: (1) Closed left hip fracture ICD Code: S72.002A Status: Acute (2) Lymph edema ICD Code: I89.0 Status: Chronic (3) Hypothyroidism ICD Code: E03.9 Status: Chronic Assessment and Plan 86 y/o female with a history of hypothyroidism, chronic back pain and lymphedema presented with: S/P Left hip surgery 11/21 for hip fracture -Orthopedics ff -Pain management with- history of chronic pain - continue on IV Morphine -restart her Percocet 10 q 4 prn for pain Lymphedema, chronic -Consult wound care: patient currently has ulna boots -Cont dressing changes per wound care recommendations Hypothyroidism, chronic -synthroid REcurrent dry wound- chin area- -OP ff up up- suggest possible biopsy DVT prophylaxis: - on Lovenox Problem Qualifiers (1) Closed left hip fracture: Qualified Code: S72.002A - Closed left hip fracture, initial encounter Eladia Ward MD Nov 21, 2016 15:27
[2016-11-21] MEDS: oxyCODONE/ACETAMINOPHEN 10 MG/325 MG TAB PO PRN ×2 (16:14→20:56)
--- NOTE | 2016-11-21 20:33 | EKG ---
Date Performed: 11/20/2016 Time Performed: 16:17:51 PTAGE: 86 years EKG: Sinus rhythm WITH FIRST DEGREE AV BLOCK POSSIBLE LEFT ATRIAL ENLARGEMENT LOW QRS VOLTAGE IN PRECORDIAL LEADS LEFT VENTRICULAR HYPERTROPHY AND ST-T CHANGE POSSIBLE ANTERIOR MYOCARDIAL INFARCTION INFERIOR MYOCARDIAL INFARCTION ABNORMAL ECG PREVIOUS TRACING : 03/06/2015 22.15 Compared to prior tracing no significant change DOCTOR: Renato Whitney Interpretating Date/Time 11/21/2016 20:32:28
[2016-11-21] MEDS: ENOXAPARIN SODIUM 30 MG/0.3 ML SYRINGE SQ SCH (20:56)
[2016-11-21] MEDS: MORPHINE SULFATE 4 MG/ML INJ IV PUSH PRN (22:15)
[2016-11-22 00:19] VITALS: BP 141/65; PULSE 84; RESP 16; TEMP 99.1; O2SAT 92
[2016-11-22] MEDS: MORPHINE SULFATE 4 MG/ML INJ IV PUSH PRN ×2 (01:57→06:22)
[2016-11-22 04:00] VITALS: BP 124/62; PULSE 75; RESP 16; TEMP 98.8; O2SAT 96
[2016-11-22 04:57] LABS: HEMATOCRIT 27.8 % (35.0-46.0); REVIEW FLAG FINAL
[2016-11-22] MEDS: oxyCODONE/ACETAMINOPHEN 10 MG/325 MG TAB PO PRN ×4 (04:59→19:15)
[2016-11-22] MEDS ORDERED: OXYC-395 PO (06:21)
[2016-11-22] MEDS: LEVOTHYROXINE SODIUM 100 MCG TAB PO SCH (06:22)
[2016-11-22] MEDS ORDERED: OXYC-259 PO (06:27)
--- NOTE | 2016-11-22 06:32 | PD.ORT.PN ---
Subjective Subjective Remarks Patient is awake and alert. She complains of pain. She states that at home she takes Percocet 10 mg every 4 hours and OxyContin 10 mg twice a day Objective Vitals Vital Signs Date Time Temp Pulse Resp B/P Pulse Ox O2 Delivery O2 Flow Rate FiO2 11/22/16 00:19 99.1 84 16 141/65 92 11/21/16 20:00 98.1 81 17 124/60 93 11/21/16 19:06 Nasal Cannula 3.00 11/21/16 18:42 94 Nasal Cannula 2.00 11/21/16 13:40 Nasal Cannula 2.00 11/21/16 13:40 98.5 81 17 141/68 94 11/21/16 12:00 98.3 82 14 170/79 97 11/21/16 10:30 98.3 82 16 166/78 95 Nasal Cannula 3 11/21/16 10:00 98.1 75 14 160/69 97 11/21/16 10:00 97 Nasal Cannula 2.00 11/21/16 10:00 79 14 167/76 95 Nasal Cannula 3 11/21/16 09:45 75 15 164/77 95 Nasal Cannula 3 11/21/16 09:30 89 16 164/79 95 Nasal Cannula 3 11/21/16 09:15 81 14 172/78 95 Nasal Cannula 3 11/21/16 09:00 97 16 163/76 96 Nasal Cannula 3 11/21/16 08:57 98.5 120 15 177/75 98 Simple Mask 6 I/O 11/21/16 11/21/16 11/21/16 11/22/16 11/22/16 11/22/16 07:00 15:00 23:00 07:00 15:00 23:00 Intake Total 500 ml 602 ml Output Total 1000 ml 270 ml 500 ml Balance -1000 ml 230 ml 102 ml Intake Oral 480 ml IV Total 122 ml Other 500 ml Output Urine Total 1000 ml 500 ml Estimated Blood Loss 20 ml Other 250 ml # Voids 0 # Bowel Movements 0 Result Diagram: 11/22/16 0334 11/21/16 0425 Imaging Last 24 hours Impressions Shoulder X-Ray 11/20/16 1624 Signed Impressions: Service Date/Time: Sunday, November 20, 2016 17:15 - CONCLUSION: Negative for fracture. Raffi Jacobson MD FACR Hip and Pelvis X-Ray 11/20/16 1558 Signed Impressions: Service Date/Time: Sunday, November 20, 2016 17:15 - CONCLUSION: Severely limited exam by patient's body habitus. Please see above discussion. Raffi Jacobson MD FACR Chest X-Ray 11/20/16 1804 Signed Impressions: Service Date/Time: Sunday, November 20, 2016 17:15 - CONCLUSION: Underaerated without rib fracture. Raffi Jacobson MD FACR Objective Remarks Patient is awake and alert. LLE: Clean dressing intact NVI Assessment & Plan Assessment and Plan 1) Left Femoral Neck Fx--postop day #1 status post left hip pinning Toe-touch weight-bearing SCDs/ANGELES hose/Lovenox We'll resume home pain medications Plan on SNF Davis Goins MD Nov 22, 2016 06:32
[2016-11-22 08:12] VITALS: BP 126/66; PULSE 74; RESP 18; TEMP 97.7; O2SAT 98
[2016-11-22] MEDS: CHOLECALCIFEROL (VIT D3) 5000 UNIT CAP PO SCH (09:08)
[2016-11-22] MEDS: SODIUM CHLORIDE 0.9% FLUSH 5 ML FLUSH IVF SCH ×2 (09:09→20:37)
[2016-11-22] MEDS: oxyCODONE HCL 10 MG CONTROLLED RELEASE TAB PO SCH ×2 (11:21→20:36)
[2016-11-22 12:40] VITALS: BP 145/63; PULSE 77; RESP 16; TEMP 97.6; O2SAT 93
--- NOTE | 2016-11-22 13:53 | HHI.PR ---
Subjective Remarks up in chair motivated with physical therapy chronic pain history d/w patient -uses Miralax daily at home for bowel regimen per patient Objective Vitals Vital Signs Date Time Temp Pulse Resp B/P Pulse Ox O2 Delivery O2 Flow Rate FiO2 11/22/16 12:40 97.6 77 16 145/63 93 11/22/16 08:12 97.7 74 18 126/66 98 11/22/16 04:00 98.8 75 16 124/62 96 11/22/16 00:19 99.1 84 16 141/65 92 11/21/16 20:00 98.1 81 17 124/60 93 11/21/16 19:06 Nasal Cannula 3.00 11/21/16 18:42 94 Nasal Cannula 2.00 I/O 11/21/16 11/21/16 11/21/16 11/22/16 11/22/16 11/22/16 07:00 15:00 23:00 07:00 15:00 23:00 Intake Total 500 ml 602 ml Output Total 1000 ml 270 ml 500 ml Balance -1000 ml 230 ml 102 ml Intake Oral 480 ml IV Total 122 ml Other 500 ml Output Urine Total 1000 ml 500 ml Estimated Blood Loss 20 ml Other 250 ml # Voids 0 # Bowel Movements 0 Result Diagram: 11/22/16 0334 11/21/16 0425 Imaging Last Impressions Hip X-Ray 11/21/16 0000 Signed Impressions: Service Date/Time: Monday, November 21, 2016 08:28 - CONCLUSION: Anatomic alignment. Raffi Jacobson MD FACR Shoulder X-Ray 11/20/16 1624 Signed Impressions: Service Date/Time: Sunday, November 20, 2016 17:15 - CONCLUSION: Negative for fracture. Raffi Jacobson MD FACR Hip and Pelvis X-Ray 11/20/16 1558 Signed Impressions: Service Date/Time: Sunday, November 20, 2016 17:15 - CONCLUSION: Severely limited exam by patient's body habitus. Please see above discussion. Raffi Jacobson MD FACR Chest X-Ray 11/20/16 1558 Signed Impressions: Service Date/Time: Sunday, November 20, 2016 17:15 - CONCLUSION: Underaerated without rib fracture. Raffi Jacobson MD FACR Lower Extremity CT 11/20/16 0000 Signed Impressions: Service Date/Time: Monday, November 21, 2016 03:33 - CONCLUSION: Mildly angulated and impacted basicervical left femoral neck fracture. Juan Pablo Ramirez MD Objective Remarks awake and alert , oriented x 3 appears comfortable anicteric lungs no rales regular rhythm abdomen soft, nontender gilmore in place extremities - post op dressing in place Procedures 11/21-left hip surgery Urinary Catheter: Yes Gilmore insert reason: Surgical/Invasive Proced Date of Insertion: Nov 20, 2016 A/P Problem List: (1) Closed left hip fracture ICD Code: S72.002A Status: Acute (2) Lymph edema ICD Code: I89.0 Status: Chronic (3) Hypothyroidism ICD Code: E03.9 Status: Chronic Assessment and Plan 86 y/o female with a history of hypothyroidism, chronic back pain and lymphedema presented with: S/P Left hip surgery 11/21 for hip fracture -Orthopedics ff -Pain management with- history of chronic pain - continue on IV Morphine -continue on Percocet 10 q 4 prn for pain. Oxycontin 10 q 12- start Miralax 17 gm daily- per patient- - her bowel regimen Lymphedema, chronic -Consult wound care: patient currently has ulna boots -Cont dressing changes per wound care recommendations Hypothyroidism, chronic -synthroid Dry recurrent wound- chin area/just below lower lip - consider OP referral for biopsy DVT prophylaxis: - on Lovenox Problem Qualifiers (1) Closed left hip fracture: Qualified Code: S72.002A - Closed left hip fracture, initial encounter Eladia Ward MD Nov 22, 2016 13:53
[2016-11-22] MEDS: POLYETHYLENE GLYCOL 17 GM PKG PO SCH (15:03)
[2016-11-22 16:00] VITALS: BP 120/69; PULSE 70; RESP 16; TEMP 97.6; O2SAT 97
[2016-11-22] MEDS: DOCUSATE SODIUM 100 MG CAP PO SCH (20:36)
[2016-11-22] MEDS: ENOXAPARIN SODIUM 30 MG/0.3 ML SYRINGE SQ SCH (20:36)
[2016-11-22 20:40] VITALS: BP 151/76; PULSE 83; RESP 18; TEMP 98.5; O2SAT 93
[2016-11-23] VITALS: BP 141/60; PULSE 98; RESP 19; TEMP 98.8; O2SAT 92
[2016-11-23] MEDS: oxyCODONE/ACETAMINOPHEN 10 MG/325 MG TAB PO PRN ×5 (01:13→18:48)
[2016-11-23 04:30] VITALS: BP 153/70; PULSE 88; RESP 19; TEMP 99.5; O2SAT 95
[2016-11-23] MEDS: LEVOTHYROXINE SODIUM 100 MCG TAB PO SCH (05:52)
[2016-11-23] MEDS ORDERED: OXYC20TA17 PO (06:30)
[2016-11-23] MEDS ORDERED: PERC10TA27 PO (06:30)
--- NOTE | 2016-11-23 06:37 | PD.ORT.PN ---
Subjective Subjective Remarks Still having difficulty with pain. Still needs assistance to move. Requesting regular diet Objective Vitals Vital Signs Date Time Temp Pulse Resp B/P Pulse Ox O2 Delivery O2 Flow Rate FiO2 11/23/16 00:00 98.8 98 19 141/60 92 11/22/16 20:40 98.5 83 18 151/76 93 11/22/16 16:00 97.6 70 16 120/69 97 11/22/16 12:40 97.6 77 16 145/63 93 11/22/16 08:12 97.7 74 18 126/66 98 I/O 11/22/16 11/22/16 11/22/16 11/23/16 11/23/16 11/23/16 07:00 15:00 23:00 07:00 15:00 23:00 Intake Total 660 ml 240 ml Output Total 300 ml Balance 660 ml -60 ml Intake Oral 660 ml 240 ml Output Urine Total 300 ml # Voids 3 1 # Bowel Movements 0 Result Diagram: 11/22/16 0334 11/21/16 0425 Imaging Last 24 hours Impressions Shoulder X-Ray 11/20/16 1624 Signed Impressions: Service Date/Time: Sunday, November 20, 2016 17:15 - CONCLUSION: Negative for fracture. Raffi Jacobson MD FACR Hip and Pelvis X-Ray 11/20/16 1558 Signed Impressions: Service Date/Time: Sunday, November 20, 2016 17:15 - CONCLUSION: Severely limited exam by patient's body habitus. Please see above discussion. Raffi Jacobson MD FACR Chest X-Ray 11/20/16 1558 Signed Impressions: Service Date/Time: Sunday, November 20, 2016 17:15 - CONCLUSION: Underaerated without rib fracture. Raffi Jacobson MD FACR Objective Remarks Patient is awake and alert. LLE: Clean dressing intact NVI Assessment & Plan Assessment and Plan 1) Left Femoral Neck Fx--postop day #2 status post left hip pinning Toe-touch weight-bearing SCDs/ANGELES hose/Lovenox We'll resume home pain medications - OxyContin and Percocet Regular diet Plan on SNF when bed available Follow-up Dr. Larry or C[facility] in 2 weeks JESSIE DELGADO PA-C Nov 23, 2016 06:37
[2016-11-23 08:00] VITALS: BP 135/66; PULSE 76; RESP 20; TEMP 98.4; O2SAT 97
[2016-11-23] MEDS: CHOLECALCIFEROL (VIT D3) 5000 UNIT CAP PO SCH (08:59)
[2016-11-23] MEDS: DOCUSATE SODIUM 100 MG CAP PO SCH ×2 (08:59→20:06)
[2016-11-23] MEDS: oxyCODONE HCL 10 MG CONTROLLED RELEASE TAB PO SCH ×2 (09:01→20:07)
[2016-11-23] MEDS: POLYETHYLENE GLYCOL 17 GM PKG PO SCH (09:02)
[2016-11-23] MEDS: SODIUM CHLORIDE 0.9% FLUSH 5 ML FLUSH IVF SCH ×2 (09:03→20:06)
--- NOTE | 2016-11-23 09:46 | HHI.PR ---
Subjective Remarks patient appears comfortable motivated with physical therapy states she feels like she is going to have a BM- on Miralax Objective Vitals Vital Signs Date Time Temp Pulse Resp B/P Pulse Ox O2 Delivery O2 Flow Rate FiO2 11/23/16 08:00 98.4 76 20 135/66 97 11/23/16 04:30 99.5 88 19 153/70 95 11/23/16 00:00 98.8 98 19 141/60 92 11/22/16 20:40 98.5 83 18 151/76 93 11/22/16 16:00 97.6 70 16 120/69 97 11/22/16 12:40 97.6 77 16 145/63 93 I/O 11/22/16 11/22/16 11/22/16 11/23/16 11/23/16 11/23/16 07:00 15:00 23:00 07:00 15:00 23:00 Intake Total 660 ml 240 ml 240 ml Output Total 300 ml Balance 660 ml -60 ml 240 ml Intake Oral 660 ml 240 ml 240 ml Output Urine Total 300 ml # Voids 3 1 2 # Bowel Movements 0 0 Result Diagram: 11/22/16 0334 11/21/16 0425 Imaging Last Impressions Hip X-Ray 11/21/16 0000 Signed Impressions: Service Date/Time: Monday, November 21, 2016 08:28 - CONCLUSION: Anatomic alignment. Raffi Jacobson MD FACR Shoulder X-Ray 11/20/16 1624 Signed Impressions: Service Date/Time: Sunday, November 20, 2016 17:15 - CONCLUSION: Negative for fracture. Raffi Jacobson MD FACR Hip and Pelvis X-Ray 11/20/16 1558 Signed Impressions: Service Date/Time: Sunday, November 20, 2016 17:15 - CONCLUSION: Severely limited exam by patient's body habitus. Please see above discussion. Raffi Jacobson MD FACR Chest X-Ray 11/20/16 1558 Signed Impressions: Service Date/Time: Sunday, November 20, 2016 17:15 - CONCLUSION: Underaerated without rib fracture. Raffi Jacobson MD FACR Lower Extremity CT 11/20/16 0000 Signed Impressions: Service Date/Time: Monday, November 21, 2016 03:33 - CONCLUSION: Mildly angulated and impacted basicervical left femoral neck fracture. Juan Pablo Ramirez MD Objective Remarks awake and alert when discussed about her pain meds chin area/area just below the lower lip - with dry scab wound appears comfortable anciteric lungs no rales regular rhythm abdomen soft, nontender extremities - post op dressing in place Procedures 11/21-left hip surgery Date of Insertion: Nov 20, 2016 A/P Problem List: (1) Closed left hip fracture ICD Code: S72.002A Status: Acute (2) Lymph edema ICD Code: I89.0 Status: Chronic (3) Hypothyroidism ICD Code: E03.9 Status: Chronic Assessment and Plan 86 y/o female with a history of hypothyroidism, chronic back pain and lymphedema presented with: S/P Left hip surgery 11/21 for hip fracture -Orthopedics ff -Pain management with- history of chronic pain - continue on IV Morphine prn -continue on Percocet 10 q 4 prn for pain. Oxycontin 10 q 12- - Miralax 17 gm daily- per patient- - her bowel regimen Lymphedema, chronic -Consult wound care: patient currently has ulna boots -Cont dressing changes per wound care recommendations Hypothyroidism, chronic -synthroid Dry recurrent wound- chin area/just below lower lip - d/w patient consider OP referral for biopsy- recurrent and chronic DVT prophylaxis: - on Lovenox DC planning- SNF Problem Qualifiers (1) Closed left hip fracture: Qualified Code: S72.002A - Closed left hip fracture, initial encounter Eladia Ward MD Nov 23, 2016 09:46
[2016-11-23 12:00] VITALS: BP 147/69; PULSE 79; RESP 20; TEMP 99.1; O2SAT 94
[2016-11-23] MEDS: MORPHINE SULFATE 4 MG/ML INJ IV PUSH PRN ×3 (12:28→21:56)
[2016-11-23 16:00] VITALS: BP 143/70; PULSE 83; RESP 16; TEMP 99.4; O2SAT 98
--- NOTE | 2016-11-23 16:02 | MB ---
cc: PAUL TOLENTINO DATE OF CONSULTATION 11/21/2016 REASON FOR CONSULTATION Left hip femoral neck fracture. CONSULTING PHYSICIAN Dr. Ward HISTORY Ms. Ivan is a pleasant 86-year-old female who lives independently with her significant other at home. She was helping her fiance with his walker. They lost their balance and they both subsequently fell. She landed on her left side. She had immediate left hip pain. She presented to the emergency room where x-rays revealed a minimally displaced left femoral neck fracture. She is currently awake and alert in the emergency department. Her only complaint is her left hip. She denies any dizziness, syncope or loss of consciousness. The pain is worse with movement, does not improve with rest. X-rays and CT scan revealed a mildly impacted left femoral neck fracture. PAST MEDICAL HISTORY ILLNESSES 1. Chronic back pain. 2. Skin cancer. 3. Lymphedema. 4. Hypothyroidism SURGERIES 1. Laminectomy. 2. Cataract surgery. 3. Facelift. 4. Tonsillectomy. 5. Hysterectomy. 6. Appendectomy. MEDICATIONS 1. Naproxen. 2. Septra DS. 3. Cleocin. 4. Percocet. 5. Lasix. 6. Synthroid. 7. Estrace. ALLERGIES PENICILLIN. TETRACYCLINE. FAMILY HISTORY Positive for coronary artery disease in her mother. SOCIAL HISTORY The patient denies tobacco or drug use. She drinks alcohol occasionally. REVIEW OF SYSTEMS The patient denies headache, visual changes, neck pain, chest pain, shortness of breath, abdominal pain, nausea, vomiting, recent weight loss or numbness or tingling of extremities. She complains of left hip pain. The pain is worse with movement. PHYSICAL EXAMINATION General: The patient is a well-developed, well-nourished 86-year-old female who is awake and alert. She is alert and oriented x 3. Vital Signs: Temperature 98.1, pulse 79, respirations 20, blood pressure 119/56, O2 sat 96% on room air. Head: The patient is normocephalic. Pupils are equal. Neck: Soft, nontender. Trachea is midline. Abdomen: Soft, nontender, nondistended. Extremities: Examination of bilateral upper extremities reveals no pain with shoulder, elbow or wrist motion bilaterally. She has intact sensation in all fingers. Radial pulses are palpable. Sensation is intact in all fingers. Golf Course Assistant strength is +5 bilaterally. Examination of the right leg reveals no pain with hip, knee or ankle motion. Skin is intact. Dorsalis pedis pulse is palpable. Sensation is intact. She does have moderate swelling of her feet. Examination of the left leg reveals pain with any attempted hip motion. She has no tenderness around her knee. She has compressive dressing wrapped around both ankle. She has good capillary refill in her toes. Sensation is intact. IMAGING X-rays and CT scan were reviewed. CT scan reveals a mildly impacted left femoral neck fracture. IMPRESSION 1. Postmenopausal osteoporosis 2. Impacted left femoral neck fracture. 3. Chronic lymphedema. 4. Chronic back pain. PLAN Treatment options were discussed with the patient. At this point I would recommend a left hip pinning. The risks of surgery include bleeding, infection, injury to arteries, nerves or blood vessels, nonunion, malunion, avascular necrosis, need for hip replacement, as well as medical complications including blood clot, stroke, heart attack and . All questions were answered. I will plan on surgery today. A mid-level provider in my office, nurse practitioner or PA, may see this patient on a follow-up basis and continue to implement the objective of this plan including: Starting or adjusting medications, injections of muscle, tendon, bursa or joints, cast application, orthotic or brace application, physical therapy, further radiographic studies including x-ray, MRI, CT, ultrasounds or bone scan, vascular studies, neurologic studies, or other specialist consultations, and proceeding with surgical management as appropriate. MD LUIS ALFREDO Nguyen/TRINI /9:13 AM /8:48 AM AZIZA
[2016-11-23] MEDS: ENOXAPARIN SODIUM 30 MG/0.3 ML SYRINGE SQ SCH (20:06)
[2016-11-23 20:21] VITALS: BP 149/61; PULSE 88; RESP 17; TEMP 99.9; O2SAT 97
[2016-11-24] MEDS ORDERED: MAGNESIUM HYDROXIDE SUSP 30 ML CUP PO SCH (04:45)
[2016-11-24 04:59] VITALS: BP 131/65; PULSE 91; RESP 17; TEMP 98.1; O2SAT 97
[2016-11-24] MEDS: LEVOTHYROXINE SODIUM 100 MCG TAB PO SCH (06:00)
--- NOTE | 2016-11-24 07:17 | PD.ORT.PN ---
Subjective Subjective Remarks Still having difficulty with pain. Still needs assistance to move. No bowel movement Objective Vitals Vital Signs Date Time Temp Pulse Resp B/P Pulse Ox O2 Delivery O2 Flow Rate FiO2 11/24/16 04:59 98.1 91 17 131/65 97 11/23/16 20:21 99.9 88 17 149/61 97 11/23/16 18:54 Nasal Cannula 3.00 11/23/16 16:00 99.4 83 16 143/70 98 11/23/16 12:00 99.1 79 20 147/69 94 11/23/16 08:00 98.4 76 20 135/66 97 I/O 11/23/16 11/23/16 11/23/16 11/24/16 11/24/16 11/24/16 07:00 15:00 23:00 07:00 15:00 23:00 Intake Total 240 ml 480 ml 240 ml 360 ml Balance 240 ml 480 ml 240 ml 360 ml Intake Oral 240 ml 480 ml 240 ml 360 ml # Voids 2 3 1 1 # Bowel Movements 0 0 0 0 Result Diagram: 11/22/16 0334 11/21/16 0425 Imaging Last 24 hours Impressions Shoulder X-Ray 11/20/16 1624 Signed Impressions: Service Date/Time: Sunday, November 20, 2016 17:15 - CONCLUSION: Negative for fracture. Raffi Jacobson MD FACR Hip and Pelvis X-Ray 11/20/16 1558 Signed Impressions: Service Date/Time: Sunday, November 20, 2016 17:15 - CONCLUSION: Severely limited exam by patient's body habitus. Please see above discussion. Raffi Jacobson MD FACR Chest X-Ray 11/20/16 1558 Signed Impressions: Service Date/Time: Sunday, November 20, 2016 17:15 - CONCLUSION: Underaerated without rib fracture. Raffi Jacobson MD FACR Objective Remarks Patient is awake and alert. LLE: Clean dressing intact NVI Assessment & Plan Assessment and Plan 1) Left Femoral Neck Fx--postop day #3 status post left hip pinning Toe-touch weight-bearing SCDs/ANGELES hose/Lovenox We'll resume home pain medications - OxyContin and Percocet Regular diet Plan on SNF when bed available and positive bowel movement Follow-up Dr. Larry or PA in 2 weeks JESSIE DELGADO PA-C Nov 24, 2016 07:17
[2016-11-24 08:02] VITALS: BP 130/61; PULSE 72; RESP 18; TEMP 95.6; O2SAT 96
[2016-11-24] MEDS: CHOLECALCIFEROL (VIT D3) 5000 UNIT CAP PO SCH (09:03)
[2016-11-24] MEDS: POLYETHYLENE GLYCOL 17 GM PKG PO SCH (09:03)
[2016-11-24] MEDS: MAGNESIUM HYDROXIDE SUSP 30 ML CUP PO SCH ×2 (09:03→20:38)
[2016-11-24] MEDS: DOCUSATE SODIUM 100 MG CAP PO SCH ×2 (09:03→20:39)
[2016-11-24] MEDS: BISACODYL EC 5 MG TABEC PO SCH ×2 (09:04→20:38)
[2016-11-24] MEDS: oxyCODONE HCL 10 MG CONTROLLED RELEASE TAB PO SCH ×2 (09:04→20:39)
[2016-11-24] MEDS: SODIUM CHLORIDE 0.9% FLUSH 5 ML FLUSH IVF SCH ×2 (09:05→20:39)
--- NOTE | 2016-11-24 09:08 | HHI.PR ---
Subjective Remarks complains of occasional spasm of the leg/thigh operated on Objective Vitals Vital Signs Date Time Temp Pulse Resp B/P Pulse Ox O2 Delivery O2 Flow Rate FiO2 11/24/16 04:59 98.1 91 17 131/65 97 11/23/16 20:21 99.9 88 17 149/61 97 11/23/16 18:54 Nasal Cannula 3.00 11/23/16 16:00 99.4 83 16 143/70 98 11/23/16 12:00 99.1 79 20 147/69 94 I/O 11/23/16 11/23/16 11/23/16 11/24/16 11/24/16 11/24/16 07:00 15:00 23:00 07:00 15:00 23:00 Intake Total 240 ml 480 ml 240 ml 360 ml Balance 240 ml 480 ml 240 ml 360 ml Intake Oral 240 ml 480 ml 240 ml 360 ml # Voids 2 3 1 1 # Bowel Movements 0 0 0 0 Result Diagram: 11/22/16 0334 11/21/16 0425 Imaging Last Impressions Hip X-Ray 11/21/16 0000 Signed Impressions: Service Date/Time: Monday, November 21, 2016 08:28 - CONCLUSION: Anatomic alignment. Raffi Jacobson MD FACR Shoulder X-Ray 11/20/16 1624 Signed Impressions: Service Date/Time: Sunday, November 20, 2016 17:15 - CONCLUSION: Negative for fracture. Raffi Jacobson MD FACR Hip and Pelvis X-Ray 11/20/16 1558 Signed Impressions: Service Date/Time: Sunday, November 20, 2016 17:15 - CONCLUSION: Severely limited exam by patient's body habitus. Please see above discussion. Raffi Jacobson MD FACR Chest X-Ray 11/20/16 1558 Signed Impressions: Service Date/Time: Sunday, November 20, 2016 17:15 - CONCLUSION: Underaerated without rib fracture. Raffi Jacobson MD FACR Lower Extremity CT 11/20/16 0000 Signed Impressions: Service Date/Time: Monday, November 21, 2016 03:33 - CONCLUSION: Mildly angulated and impacted basicervical left femoral neck fracture. Juan Pablo Ramirez MD Objective Remarks awake and alert when discussed about her pain meds appears comfortable anicteric lungs no rales regular rhythm abdomen soft, nontender extremities - post op dressing in place Procedures 11/21-left hip surgery Assessment to: Remove Date of Insertion: Nov 20, 2016 Date of Removal: Nov 23, 2016 A/P Problem List: (1) Closed left hip fracture ICD Code: S72.002A Status: Acute (2) Lymph edema ICD Code: I89.0 Status: Chronic (3) Hypothyroidism ICD Code: E03.9 Status: Chronic Assessment and Plan 86 y/o female with a history of hypothyroidism, chronic back pain and lymphedema presented with: S/P Left hip surgery 11/21 for hip fracture -Orthopedics ff -Pain management with- history of chronic pain - continue on IV Morphine prn -continue on Percocet 10 q 4 prn for pain. Oxycontin 10 q 12- - Miralax 17 gm daily- per patient- - her bowel regimen Lymphedema, chronic - currently has ulna boots -Cont dressing changes per wound care recommendations Hypothyroidism, chronic -synthroid Dry recurrent wound- chin area/just below lower lip - d/w patient consider OP referral for biopsy- recurrent and chronic constipation -meds ordered DVT prophylaxis: - on Lovenox DC planning- SNF if BM CM ff Problem Qualifiers (1) Closed left hip fracture: Qualified Code: S72.002A - Closed left hip fracture, initial encounter Eladia Ward MD Nov 24, 2016 09:07
[2016-11-24] MEDS ORDERED: BACLOFEN 10 MG TAB PO ONE (10:30)
[2016-11-24] MEDS: oxyCODONE/ACETAMINOPHEN 10 MG/325 MG TAB PO PRN ×3 (10:36→18:46)
[2016-11-24] MEDS ORDERED: BISACODYL 10 MG SUPP RECTAL ONE (11:30)
[2016-11-24 12:16] VITALS: BP 134/59; PULSE 80; RESP 17; TEMP 97.9; O2SAT 97
[2016-11-24 16:27] VITALS: BP 146/77; PULSE 76; RESP 18; TEMP 97.2; O2SAT 97
[2016-11-24 20:30] VITALS: BP 138/63; PULSE 89; RESP 18; TEMP 99.9; O2SAT 95
[2016-11-24] MEDS: ENOXAPARIN SODIUM 30 MG/0.3 ML SYRINGE SQ SCH (20:39)
--- NOTE | 2016-12-13 10:57 | HHI.DS ---
Discharge Summary Admission Date Nov 20, 2016 at 19:21 Discharge Date: Nov 24, 2016 Admitting Diagnosis Left Hip Fracture (1) Closed left hip fracture ICD Code: S72.002A Diagnosis: Principal (2) Lymph edema ICD Code: I89.0 Diagnosis: Secondary (3) Hypothyroidism ICD Code: E03.9 Diagnosis: Secondary Procedures 11/21-left hip surgery Brief History - From Admission History taken from patient and ED physician 86-year-old female with a history of chronic back pain, hypothyroidism, skin cancer, rheumatoid arthritis and lymphedema presented by evac after suffering a fall at home. Patient states that her walker has a seat on it and her fianc was getting weak and thought he was going to follow, so she turned her walker around so he could sit on his feet, and the force of him sitting on the seat pushed her backwards and she fell to the ground and landed on her left side. She denies any loss of consciousness. She states her left hip and left shoulder is a severe throbbing pain, with no associated symptoms. She denies any chest pain, short of breath, fever or chills. Imaging Last Impressions Hip X-Ray 11/21/16 0000 Signed Impressions: Service Date/Time: Monday, November 21, 2016 08:28 - CONCLUSION: Anatomic alignment. Raffi Jacobson MD FACR Shoulder X-Ray 11/20/16 1624 Signed Impressions: Service Date/Time: Sunday, November 20, 2016 17:15 - CONCLUSION: Negative for fracture. Raffi Jacobson MD FACR Hip and Pelvis X-Ray 11/20/16 1558 Signed Impressions: Service Date/Time: Sunday, November 20, 2016 17:15 - CONCLUSION: Severely limited exam by patient's body habitus. Please see above discussion. Raffi Jacobson MD FACR Chest X-Ray 11/20/16 1558 Signed Impressions: Service Date/Time: Sunday, November 20, 2016 17:15 - CONCLUSION: Underaerated without rib fracture. Raffi Jacobson MD FACR Lower Extremity CT 11/20/16 0000 Signed Impressions: Service Date/Time: Monday, November 21, 2016 03:33 - CONCLUSION: Mildly angulated and impacted basicervical left femoral neck fracture. Juan Pablo Ramriez MD PE at Discharge awake and alert when discussed about her pain meds appears comfortable anicteric lungs no rales regular rhythm abdomen soft, nontender extremities - post op dressing in place Pt update on day of discharge pain controlled, afebrile Hospital Course 86 y/o female with a history of hypothyroidism, chronic back pain and lymphedema presented with: S/P Left hip surgery 11/21 for hip fracture -Orthopedics ff -Pain management with- history of chronic pain - continue on IV Morphine prn -continue on Percocet 10 q 4 prn for pain. Oxycontin 10 q 12- - Miralax 17 gm daily- per patient- - her bowel regimen Lymphedema, chronic - currently has ulna boots -Cont dressing changes per wound care recommendations Hypothyroidism, chronic -synthroid Dry recurrent wound- chin area/just below lower lip - d/w patient consider OP referral for biopsy- recurrent and chronic constipation -meds ordered DVT prophylaxis: - on Lovenox DC planning- SNF if BM CM ff Pt Condition on Discharge: Stable Discharge Disposition: Disch w/ Home Health Serv Discharge Time: <= 30 minutes Discharge Instructions DIET: Follow Instructions for: As Tolerated, No Restrictions Speech Therapy-Diet Recommends: Regular Activities you can perform: Toe Touch Weight Bearing Follow up Referrals: Orthopedics - 2 Weeks @ [facility] with Davis Goins MD SNF/RESIDENTIAL/ with [facility] New Medications: Oxycodone ER (Oxycontin) 20 Mg Tab 20 MG PO Q12HR Pain Management #40 Ref 0 TAB Oxycodone-Acetaminophen (Percocet) 10-325 mg Tab 1 TAB PO Q4H PRN PAIN #60 Ref 0 TAB Rivaroxaban (Xarelto) 10 Mg Tab 10 MG PO DAILY Blood Clot Prevention #14 Ref 0 TAB Walker/Adult/Folding (Walker/Adult/Folding) 1 Mis Mis 1 EA .ROUTE DIRECTED #1 Ref 0 EA Continued Medications: Clindamycin Hcl (Cleocin) 300 Mg Cap 300 MG PO QID #40 CAP Estradiol (Estrace) 0.5 Mg Tab 2 MG PO DAILY UNKNOWN DOSE Ref 0 Furosemide (Furosemide) 20 Mg Tab 20 MG PO DAILY TAB Levothyroxine Sodium (Synthroid) 50 Mcg Tab 100 MCG PO DAILY TAB Oxycodone W/ Acetaminophen (Oxycodone/Acetaminophen 5-325 mg/5Ml) 1 Tab Tab 1 TAB PO Q4 PAIN #90 Ref 0 TAB Potassium Chloride (Klor-Con 10 Meq) 10 Meq Tabcr 10 MEQ PO DAILY TABCR Sulfamethoxazole-Trimethoprim (Septra Ds) Tab 1 TAB PO BID #20 TAB Discontinued Medications: Naproxen (Naproxen) 500 Mg Tab 500 MG PO BID #60 TAB Eladia Ward MD Dec 13, 2016 10:57
[2017-03-27] MEDS ORDERED: CEPH500C PO (18:49)
[2017-03-27] MEDS ORDERED: ENOX40IN SQ (18:49)
[2017-03-27] MEDS ORDERED: OXYC-395 PO (18:49)
[2017-04-11] MEDS ORDERED: WHEEMIS3 (11:13)
[2017-04-11] MEDS ORDERED: COMMODE PAIL WI1 MIS (11:14)
[2017-04-11] MEDS ORDERED: [UNRECOGNIZED DRUG - OTHER] (11:14)
[2017-04-15] MEDS ORDERED: OXYC1TAB36 PO (08:58)
[2017-04-15] MEDS ORDERED: POLY17S PO (08:58)
[2017-04-15] MEDS ORDERED: VITA1000 PO (08:58)
[2017-04-15] MEDS ORDERED: TRIA.1%T TOPICAL (08:58)
[2017-04-15] MEDS ORDERED: XARE10TA PO (08:58)
[2017-04-15] MEDS ORDERED: oxyCODONE SR PO (08:58)
[2017-04-15] MEDS ORDERED: METO25TA3 PO (08:58)
[2017-04-15] MEDS ORDERED: AMLO5 PO (08:58)
[2017-04-15] MEDS ORDERED: ACET1TAB86 PO (08:58)
[2017-04-15] MEDS ORDERED: THERTAB15 PO (08:58)
[2017-04-15] MEDS ORDERED: COLL30T TOPICAL (08:58)
[2017-04-15] MEDS ORDERED: MUPI2OIN TOPICAL (08:58)
[2017-04-15] MEDS ORDERED: LIDO5DIS5 T-DERMAL (08:58)
[2017-04-15] MEDS ORDERED: LACT12LO4 TOPICAL (08:58)
== END 2016-11-24 21:53 | DRG 482 ==
LOC: NEPC 15:01 → NEDA 19:21 → NEDH 11-21 00:05 → N06A 11-21 13:19
PROVIDERS: ADMIT Internal Medicine; ATTEND Internal Medicine
PROC: 0QS7XZZ Reposition Left Upper Femur, External Approach (ICD-10-PCS; 2016-11-21)
PROC: 0QH704Z Insertion of Internal Fixation Device into Left Upper Femur, Open Approach (ICD-10-PCS; principal; 2016-11-21 07:45)
DX: S72.002A Fracture of unspecified part of neck of left femur, initial encounter for closed fracture (principal); W18.39XA Other fall on same level, initial encounter; M06.9 Rheumatoid arthritis, unspecified; M81.0 Age-related osteoporosis without current pathological fracture; E03.9 Hypothyroidism, unspecified; M25.512 Pain in left shoulder; M54.9 Dorsalgia, unspecified; G89.29 Other chronic pain; I89.0 Lymphedema, not elsewhere classified; K59.00 Constipation, unspecified; Z85.828 Personal history of other malignant neoplasm of skin
CPT/HCPCS: 51702; 71010; 73030; 73502; 73700; 76000; 80048; 80053; 81001; 82306; 85014; 85018; 85025; 85610; 85730; 86850; 86900; 86901; 87077; 87086; 87186; 93005; 94664; 96374; 96375; 96376; C1713; C1769; J0131; J0690; J1170; J1650; J2060; J2270; J2370; J2405; J3010; J3370; J7120; J7613